=== PATIENT | female | born 1980 | race Caucasian/White ===

== ENCOUNTER 2017-11-24 08:35 | Emergency (ER) | payer OTHER ==
[~2017-11-24] VITALS: Ht 149.9 cm; Wt 51.7 kg
== END 2017-11-24 12:03 | disposition home or self-care (01) ==
LOC: ER 08:35
DX: L02.425 Furuncle of right lower limb (principal)

== ENCOUNTER 2018-02-07 13:08 | Outpatient (CLI) | payer OTHER | END 2018-02-07 13:09 | disposition home or self-care (01) | LOC: RAD 13:08 | DX: R05 Cough (principal) ==

== ENCOUNTER 2023-11-22 08:15 | Outpatient (CLI) | payer OTHER | END 2023-11-22 08:28 | disposition home or self-care (01) | LOC: RAD 08:15 | PROVIDERS: ATTEND General Practice | DX: R51.9 Headache, unspecified (principal); R42 Dizziness and giddiness; E16.2 Hypoglycemia, unspecified; M54.2 Cervicalgia; M62.89 Other specified disorders of muscle ==